=== PATIENT | female | born 1995 | race American Indian/Alaskan Native ===

== ENCOUNTER 2020-10-26 08:57 | Outpatient (CLI) | payer OTHER ==
[2020-10-26 09:30] VITALS: BP 113/74
== END 2020-10-26 10:33 | disposition home or self-care (01) ==
LOC: TRG 08:57 → APU 08:58 → TRG 10:33
PROVIDERS: ATTEND Obstetrics & Gynecology
DX: O26.893 Other specified pregnancy related conditions, third trimester (principal); R10.2 Pelvic and perineal pain; M54.5 Low back pain; Z3A.30 30 weeks gestation of pregnancy
CPT/HCPCS: 59025

== ENCOUNTER 2020-12-31 16:19 | Inpatient (IN) | payer OTHER ==
[2020-12-31] MEDS ORDERED: TERBUTALINE 1 MG/1 ML INJ SUB-Q PRN (16:51)
[2020-12-31] MEDS ORDERED: NalbUPHINE 10 MG/1 ML INJ IV PRN (16:51)
[2020-12-31] MEDS ORDERED: ONDANSETRON 4 MG/2 ML INJ IV PRN (16:51)
[2020-12-31] MEDS ORDERED: ACETAMINOPHEN 325 MG TAB PO PRN (16:51)
[2020-12-31] MEDS ORDERED: ePHEDrine SULFATE 50 MG/1 ML INJ IV PRN (16:51)
[2020-12-31] MEDS ORDERED: MINERAL OIL 30 ML ORAL LIQD PO PRN (16:51)
[2020-12-31] MEDS ORDERED: fentaNYL 100 MCG/2 ML INJ IV PRN (16:51)
[2020-12-31] MEDS ORDERED: LIDOCAINE (2%) 20 MG/1 ML VIAL 20 ML MDV INFILTRATI ONE (16:51)
[2020-12-31] MEDS ORDERED: OXYTOCIN DRIP 30 UNITS/500 ML BAG IV SCH (17:00)
[2020-12-31] MEDS: LACTATED RINGERS 1,000 ML IV SCH (18:21)
[2020-12-31 18:48] LABS: Hematocrit 37.3 % (30.3-42.9); Hemoglobin 12.5 gm/dl (10.1-14.3); Mean Corpuscular HGB Conc 34 % (30-34); Mean Corpuscular Volume 86 fl (79-97); Platelet Count 278 K/mm3 (140-440); Red Blood Count 4.35 M/mm3 (3.65-5.03); Red Cell Distribution Width 14.1 % (13.2-15.2)
[2020-12-31] MEDS ORDERED: DINOPROSTONE 10 MG VAG SUPP VG ONE (18:51)
[2020-12-31 18:56] LABS: Bacteria,Urine 1+ /HPF (Negative); Bilirubin,Urine NEG (Negative); Blood,Urine NEG (Negative); Color,Urine Yellow (Yellow); Mucus,Urine 1+ /HPF; Protein,Urine <15 mg/dL mg/dL (Negative); Urobilinogen,Urine < 2.0 mg/dL (<2.0)
--- NOTE | 2020-12-31 19:33 | History and Physical Report ---
History of Present Illness Date of examination: 12/31/20 Date of admission: 12/31/20 16:19 Chief complaint: Induction of labor for mildly elevated blood pressures in the office at 40-4/7-weeks History of present illness: 25-year-old -0-1-0 at 40-4/7 weeks by LL and LMP consistent with first trimester ultrasound, admitted for induction of labor. Patient with mildly elevated blood pressures in the office to 140/90's. On admission patient denies headache blurry vision or swelling but does admit to good movement. She denies loss of fluid and contractions and denies vaginal bleeding. care at [facility] [employer]: First visit at 10-6/7 weeks, last visit at 40-4/7 weeks. Total visits=11 OB problem list: Carriers SMA Bipolar disorder in remission GBS bacteria lab A positive Hemoglobin 13 point Rubella immune VDRL nonreactive Urine culture GBS positive HBsAg negative HIV negative GC chlamydia and Trichomoniasis negative MSAFP negative Past History Past Medical History: other (Bipolar) Past Surgical History: no surgical history Social history: no significant social history - Obstetrical History : 1 Medications and Allergies Allergies Allergy/AdvReac Type Severity Reaction Status Date / Time pcn Allergy Anaphylaxis Uncoded 10/26/20 09:32 Home Medications Medication Instructions Recorded Confirmed Last Taken Type No Known Home Medications [No 12/31/20 12/31/20 Unknown History Reported Home Medications] Active Meds: Active Medications Acetaminophen (Acetaminophen 325 Mg Tab) 650 mg PO Q4H PRN PRN Reason: Pain, Mild (1-3) Butorphanol Tartrate (Butorphanol 2 Mg/1 Ml Inj) 1 mg IV Q2H PRN PRN Reason: Pain, Moderate(4-6) LABOR PAIN Ephedrine Sulfate (Ephedrine Sulfate 50 Mg/1 Ml Inj) 10 mg IV Q2M PRN PRN Reason: Hypotension Fentanyl (Fentanyl 100 Mcg/2 Ml Inj) 100 mcg IV Q2H PRN PRN Reason: Pain,Severe (7-10) LABOR PAIN Oxytocin/Sodium Chloride (Pitocin/Ns 30 Unit/500ml) 30 units in 500 mls @ 2 mls/hr IV TITR TARA; Protocol Lactated Ringer's (Lactated Ringers) 1,000 mls @ 125 mls/hr IV DIRECT TARA Last Admin: 12/31/20 18:21 Dose: 125 mls/hr Documented by: Oxytocin/Sodium Chloride (Pitocin/Ns 30 Unit/500ml) 30 units in 500 mls @ 40 mls/hr IV TITR TARA; Protocol Clindamycin HCl (Cleocin 900 Mg/50 Ml) 900 mg in 50 mls @ 100 mls/hr IV Q8H TARA; Protocol Last Admin: 12/31/20 18:21 Dose: 100 mls/hr Documented by: Mineral Oil (Mineral Oil 30 Ml Oral Liqd) 30 ml PO QHS PRN PRN Reason: Constipation Nalbuphine HCl (Nalbuphine 10 Mg/1 Ml Inj) 10 mg IV Q2H PRN PRN Reason: Pain, Moderate (4-6) Ondansetron HCl (Ondansetron 4 Mg/2 Ml Inj) 4 mg IV Q8H PRN PRN Reason: Nausea And Vomiting Terbutaline Sulfate (Terbutaline 1 Mg/1 Ml Inj) 0.25 mg SUB-Q ONCE PRN PRN Reason: Hyperstimulation/Hypertonicity - Vital Signs Vital signs: Vital Signs Pulse BP 99 H 128/86 12/31/20 16:48 12/31/20 16:48 Temp Pulse Resp BP Pulse Ox 98.8 F 69 18 126/72 98 12/31/20 17:09 12/31/20 19:23 12/31/20 17:09 12/31/20 19:23 12/31/20 19:20 - Physical Exam Breasts: Positive: deferred Cardiovascular: Regular rate Lungs: Positive: Clear to auscultation Abdomen: Positive: normal appearance, soft, normal bowel sounds Extremities: Positive: normal Deep Tendon Reflex Grade: Normal +2 - Obstetrical FHR: category 1 Cervical Dilatation: 0.5 Cervical Effacement Percentage: 50 station: -3 Uterine Contraction Pattern: Absent Results Result Diagrams: 12/31/20 17:55 All other labs normal. Assessment and Plan IUP at 40 and 4 with mildly elevated blood pressures for induction of labor Plan Admission Serial blood pressure PIH labs Cervidil Continuous monitoring Blood pressures do not meet criteria on admission for preeclampsia, will monitor closely and if patient declares herself will start magnesium sulfate Maternal and wellbeing reassuring at bedside Zeenat Menjivar MD
[2020-12-31 19:48] LABS: Alanine Aminotransferase 10 units/L (7-56); Uric Acid 4.5 mg/dL (3.5-7.6)
[2020-12-31 20:25] LABS: Creatinine,Urine 112.4 mg/dL (0.1-20.0); Protein/Creatinine Ratio,Urine 0.15
[2021-01-01] MEDS ORDERED: DINOPROSTONE 10 MG VAG SUPP VG ONE (01:10)
[2021-01-01] MEDS: LACTATED RINGERS 1,000 ML IV SCH ×3 (02:54→22:20)
[2021-01-01] MEDS ORDERED: DINOPROSTONE 10 MG VAG SUPP VG NR (10:35)
--- NOTE | 2021-01-01 22:39 | Progress Note ---
Assessment and Plan HD 1 of induction. Pt receied cervidil last night that is to be removed in the am. Will continue with induction of labor. Will assess after removal of cervidil Subjective - Subjective Date of service: 01/01/21 Principal diagnosis: Induction of labor Patient reports: contractions, other (increased vaginal discharge) Objective - Vital Signs Vital Signs: Vital Signs - 12hr 01/01/21 01/01/21 01/01/21 10:39 10:44 12:20 Pulse Rate 58 L 68 79 Respiratory Rate Blood Pressure O2 Sat by Pulse 98 98 99 Oximetry 01/01/21 01/01/21 01/01/21 12:25 12:30 12:35 Pulse Rate 74 68 79 Respiratory Rate Blood Pressure O2 Sat by Pulse 99 99 99 Oximetry 01/01/21 01/01/21 01/01/21 12:40 12:45 12:50 Pulse Rate 71 66 70 Respiratory Rate Blood Pressure O2 Sat by Pulse 99 100 100 Oximetry 01/01/21 01/01/21 01/01/21 12:55 13:00 13:05 Pulse Rate 64 69 70 Respiratory Rate Blood Pressure O2 Sat by Pulse 100 100 100 Oximetry 01/01/21 01/01/21 01/01/21 13:10 13:15 13:20 Pulse Rate 71 66 67 Respiratory Rate Blood Pressure O2 Sat by Pulse 99 99 100 Oximetry 01/01/21 01/01/21 01/01/21 13:25 13:30 13:35 Pulse Rate 85 62 65 Respiratory Rate Blood Pressure O2 Sat by Pulse 99 98 98 Oximetry 01/01/21 01/01/21 01/01/21 13:40 13:45 13:50 Pulse Rate 61 63 60 Respiratory Rate Blood Pressure O2 Sat by Pulse 95 98 99 Oximetry 01/01/21 01/01/21 01/01/21 13:55 14:00 14:11 Pulse Rate 63 64 66 Respiratory Rate Blood Pressure O2 Sat by Pulse 98 97 100 Oximetry 01/01/21 01/01/21 01/01/21 14:16 14:21 14:26 Pulse Rate 58 L 57 L 60 Respiratory Rate Blood Pressure O2 Sat by Pulse 100 99 97 Oximetry 01/01/21 01/01/21 01/01/21 14:31 14:32 14:36 Pulse Rate 66 78 68 Respiratory Rate Blood Pressure O2 Sat by Pulse 95 92 99 Oximetry 01/01/21 01/01/21 01/01/21 14:41 14:46 14:51 Pulse Rate 62 68 68 Respiratory Rate Blood Pressure O2 Sat by Pulse 97 97 97 Oximetry 01/01/21 01/01/21 01/01/21 14:56 15:01 15:06 Pulse Rate 62 65 64 Respiratory Rate Blood Pressure O2 Sat by Pulse 96 96 96 Oximetry 01/01/21 01/01/21 01/01/21 15:11 15:16 15:21 Pulse Rate 64 65 67 Respiratory Rate Blood Pressure O2 Sat by Pulse 96 97 97 Oximetry 01/01/21 01/01/21 01/01/21 15:26 15:31 15:36 Pulse Rate 55 L 62 67 Respiratory Rate Blood Pressure O2 Sat by Pulse 99 100 100 Oximetry 01/01/21 01/01/21 01/01/21 15:41 15:46 15:58 Pulse Rate 60 64 90 Respiratory Rate Blood Pressure O2 Sat by Pulse 100 100 98 Oximetry 01/01/21 01/01/21 01/01/21 16:03 16:08 16:13 Pulse Rate 74 95 H 79 Respiratory Rate Blood Pressure O2 Sat by Pulse 100 100 100 Oximetry 01/01/21 01/01/21 01/01/21 16:18 16:23 16:26 Pulse Rate 80 76 78 Respiratory Rate Blood Pressure O2 Sat by Pulse 100 96 89 Oximetry 01/01/21 01/01/21 01/01/21 16:28 16:33 16:38 Pulse Rate 77 84 89 Respiratory Rate Blood Pressure O2 Sat by Pulse 97 99 100 Oximetry 01/01/21 01/01/21 01/01/21 16:43 16:48 16:53 Pulse Rate 95 H 88 84 Respiratory Rate Blood Pressure O2 Sat by Pulse 99 99 100 Oximetry 01/01/21 01/01/21 01/01/21 16:58 17:03 17:08 Pulse Rate 85 83 89 Respiratory Rate Blood Pressure O2 Sat by Pulse 100 99 100 Oximetry 01/01/21 01/01/21 01/01/21 17:13 17:18 17:39 Pulse Rate 84 92 H 72 Respiratory Rate Blood Pressure O2 Sat by Pulse 100 99 99 Oximetry 01/01/21 01/01/21 01/01/21 17:44 17:49 17:54 Pulse Rate 80 74 78 Respiratory Rate Blood Pressure O2 Sat by Pulse 98 99 99 Oximetry 01/01/21 01/01/21 01/01/21 17:59 18:04 18:09 Pulse Rate 74 87 74 Respiratory Rate Blood Pressure O2 Sat by Pulse 99 99 99 Oximetry 01/01/21 01/01/21 01/01/21 18:14 18:19 18:29 Pulse Rate 92 H 75 94 H Respiratory Rate Blood Pressure O2 Sat by Pulse 99 98 92 Oximetry 01/01/21 01/01/21 01/01/21 18:34 18:39 18:44 Pulse Rate 81 84 72 Respiratory Rate Blood Pressure O2 Sat by Pulse 100 100 100 Oximetry 01/01/21 01/01/21 01/01/21 18:49 18:54 18:59 Pulse Rate 87 77 76 Respiratory Rate Blood Pressure O2 Sat by Pulse 99 99 100 Oximetry 01/01/21 01/01/21 01/01/21 19:04 19:09 19:14 Pulse Rate 77 83 82 Respiratory Rate Blood Pressure O2 Sat by Pulse 99 100 99 Oximetry 01/01/21 01/01/21 01/01/21 19:19 19:20 19:24 Pulse Rate 86 75 82 Respiratory Rate Blood Pressure 133/78 O2 Sat by Pulse 98 100 Oximetry 01/01/21 01/01/21 01/01/21 19:29 19:34 19:46 Pulse Rate 76 79 Respiratory Rate Blood Pressure O2 Sat by Pulse 100 100 100 Oximetry 01/01/21 01/01/21 01/01/21 19:51 19:56 19:58 Pulse Rate 72 67 86 Respiratory Rate Blood Pressure O2 Sat by Pulse 100 99 94 Oximetry 01/01/21 01/01/21 01/01/21 20:01 20:06 20:11 Pulse Rate 66 73 73 Respiratory Rate Blood Pressure O2 Sat by Pulse 100 100 99 Oximetry 01/01/21 01/01/21 01/01/21 20:16 20:21 20:26 Pulse Rate 69 68 69 Respiratory Rate Blood Pressure O2 Sat by Pulse 100 99 100 Oximetry 01/01/21 01/01/21 01/01/21 20:31 20:36 20:41 Pulse Rate 69 77 82 Respiratory Rate Blood Pressure O2 Sat by Pulse 100 100 100 Oximetry 01/01/21 01/01/21 01/01/21 20:46 20:51 20:56 Pulse Rate 72 73 74 Respiratory Rate Blood Pressure O2 Sat by Pulse 99 100 100 Oximetry 01/01/21 01/01/21 01/01/21 21:07 21:09 21:12 Pulse Rate 80 76 70 Respiratory Rate Blood Pressure O2 Sat by Pulse 99 82 L 100 Oximetry 01/01/21 01/01/21 01/01/21 21:17 21:22 21:27 Pulse Rate 73 84 74 Respiratory 18 Rate Blood Pressure O2 Sat by Pulse 100 98 99 Oximetry 01/01/21 01/01/21 01/01/21 21:32 21:37 21:42 Pulse Rate 78 70 80 Respiratory Rate Blood Pressure O2 Sat by Pulse 98 98 100 Oximetry 01/01/21 01/01/21 01/01/21 21:47 21:52 21:57 Pulse Rate 72 64 67 Respiratory Rate Blood Pressure O2 Sat by Pulse 99 96 98 Oximetry 01/01/21 01/01/21 01/01/21 22:02 22:07 22:12 Pulse Rate 77 63 91 H Respiratory Rate Blood Pressure O2 Sat by Pulse 99 100 100 Oximetry 01/01/21 01/01/21 01/01/21 22:17 22:22 22:27 Pulse Rate 66 61 70 Respiratory Rate Blood Pressure O2 Sat by Pulse 98 98 99 Oximetry 01/01/21 22:32 Pulse Rate 78 Respiratory Rate Blood Pressure O2 Sat by Pulse 98 Oximetry - Exam Lungs: Clear to auscultation, Normal air movement Abdomen: Present: normal appearance, soft, normal bowel sounds Uterus: Present: normal, firm Cervical Dilatation: 0 Cervical Effacement Percentage: 50 Uterine Tone Measurement Phase: Contraction Uterine Contraction Intensity: Moderate - Labs Labs: Abnormal Labs 12/31/20 12/31/20 17:55 18:06 Lactate Dehydrogenase 197 H Urine Creatinine 112.4 H Urine Total Protein 17 H Laboratory Results - last 24 hr 01/01/21 Unknown Coronavirus (PCR) Negative
[2021-01-02] MEDS: BUTORPHANOL 2 MG/1 ML INJ IV PRN ×2 (05:43→09:33)
[2021-01-02] MEDS: LACTATED RINGERS 1,000 ML IV SCH ×3 (08:00→18:10)
[2021-01-02] MEDS: OXYTOCIN DRIP 30 UNITS/500 ML BAG IV SCH ×13 (08:03→18:23)
--- NOTE | 2021-01-02 08:46 | Progress Note ---
Assessment and Plan A: 26 yo at 40w6d EGA Gestational hypertension Membranes intact GBS positive P: Continue induction of labor- Pitocin titration 2x2 Antibiotic prophylaxis in active labor and/or ruptured membranes Subjective - Subjective Date of service: 01/02/21 Principal diagnosis: Gestational HTN, Induction of labor Interval history: HD2.5 of IOL for gestational hypertension. S/p Cervidil x2 and low dose Pitocin. Denies OCONNOR, scotomata, swelling. Patient reports: movement normal, contractions, other, no new complaints, no loss of fluid, no vaginal bleeding Objective - Vital Signs Vital Signs: Vital Signs - 12hr 01/01/21 01/01/21 01/01/21 20:46 20:51 20:56 Temperature Pulse Rate 72 73 74 Respiratory Rate Blood Pressure Blood Pressure [Right] O2 Sat by Pulse 99 100 100 Oximetry 01/01/21 01/01/21 01/01/21 21:07 21:09 21:12 Temperature Pulse Rate 80 76 70 Respiratory Rate Blood Pressure Blood Pressure [Right] O2 Sat by Pulse 99 82 L 100 Oximetry 01/01/21 01/01/21 01/01/21 21:17 21:22 21:27 Temperature Pulse Rate 73 84 74 Respiratory 18 Rate Blood Pressure Blood Pressure [Right] O2 Sat by Pulse 100 98 99 Oximetry 01/01/21 01/01/21 01/01/21 21:32 21:37 21:42 Temperature Pulse Rate 78 70 80 Respiratory Rate Blood Pressure Blood Pressure [Right] O2 Sat by Pulse 98 98 100 Oximetry 01/01/21 01/01/21 01/01/21 21:47 21:52 21:57 Temperature Pulse Rate 72 64 67 Respiratory Rate Blood Pressure Blood Pressure [Right] O2 Sat by Pulse 99 96 98 Oximetry 01/01/21 01/01/21 01/01/21 22:02 22:07 22:12 Temperature Pulse Rate 77 63 91 H Respiratory Rate Blood Pressure Blood Pressure [Right] O2 Sat by Pulse 99 100 100 Oximetry 01/01/21 01/01/21 01/01/21 22:17 22:22 22:27 Temperature Pulse Rate 66 61 70 Respiratory 18 Rate Blood Pressure Blood Pressure [Right] O2 Sat by Pulse 98 98 99 Oximetry 01/01/21 01/01/21 01/01/21 22:32 22:37 22:42 Temperature Pulse Rate 78 74 70 Respiratory Rate Blood Pressure Blood Pressure [Right] O2 Sat by Pulse 98 97 99 Oximetry 01/01/21 01/01/21 01/01/21 22:47 22:52 22:57 Temperature Pulse Rate 74 91 H 89 Respiratory Rate Blood Pressure Blood Pressure [Right] O2 Sat by Pulse 98 100 100 Oximetry 01/01/21 01/01/21 01/01/21 23:02 23:07 23:12 Temperature Pulse Rate 91 H 89 87 Respiratory Rate Blood Pressure Blood Pressure [Right] O2 Sat by Pulse 100 100 99 Oximetry 01/01/21 01/01/21 01/01/21 23:17 23:22 23:27 Temperature Pulse Rate 89 91 H 83 Respiratory Rate Blood Pressure Blood Pressure [Right] O2 Sat by Pulse 100 98 98 Oximetry 01/01/21 01/01/21 01/01/21 23:32 23:37 23:42 Temperature Pulse Rate 86 89 90 Respiratory Rate Blood Pressure Blood Pressure [Right] O2 Sat by Pulse 100 100 99 Oximetry 01/01/21 01/01/21 01/01/21 23:47 23:52 23:57 Temperature Pulse Rate 79 77 85 Respiratory Rate Blood Pressure Blood Pressure [Right] O2 Sat by Pulse 100 99 99 Oximetry 01/02/21 01/02/21 01/02/21 02:01 02:03 02:06 Temperature Pulse Rate 72 66 63 Respiratory Rate Blood Pressure 117/57 Blood Pressure [Right] O2 Sat by Pulse 99 98 Oximetry 01/02/21 01/02/21 01/02/21 02:11 02:16 02:21 Temperature Pulse Rate 58 L 57 L 56 L Respiratory Rate Blood Pressure Blood Pressure [Right] O2 Sat by Pulse 99 98 98 Oximetry 01/02/21 01/02/21 01/02/21 02:26 02:31 02:36 Temperature Pulse Rate 64 60 58 L Respiratory Rate Blood Pressure Blood Pressure [Right] O2 Sat by Pulse 99 98 97 Oximetry 01/02/21 01/02/21 01/02/21 02:41 02:46 02:51 Temperature Pulse Rate 63 60 59 L Respiratory Rate Blood Pressure Blood Pressure [Right] O2 Sat by Pulse 97 97 97 Oximetry 01/02/21 01/02/21 01/02/21 02:56 03:01 03:02 Temperature Pulse Rate 58 L 62 66 Respiratory Rate Blood Pressure Blood Pressure [Right] O2 Sat by Pulse 95 96 93 Oximetry 01/02/21 01/02/21 01/02/21 03:06 03:20 03:25 Temperature Pulse Rate 61 62 62 Respiratory Rate Blood Pressure Blood Pressure [Right] O2 Sat by Pulse 97 100 99 Oximetry 01/02/21 01/02/21 01/02/21 03:30 03:35 03:40 Temperature Pulse Rate 66 61 55 L Respiratory Rate Blood Pressure Blood Pressure [Right] O2 Sat by Pulse 100 97 100 Oximetry 01/02/21 01/02/21 01/02/21 03:45 03:50 03:55 Temperature Pulse Rate 53 L 55 L 60 Respiratory Rate Blood Pressure Blood Pressure [Right] O2 Sat by Pulse 100 99 99 Oximetry 01/02/21 01/02/21 01/02/21 04:00 04:05 04:10 Temperature Pulse Rate 61 61 61 Respiratory Rate Blood Pressure Blood Pressure [Right] O2 Sat by Pulse 98 99 99 Oximetry 01/02/21 01/02/21 01/02/21 04:15 04:20 04:25 Temperature Pulse Rate 69 60 54 L Respiratory Rate Blood Pressure Blood Pressure [Right] O2 Sat by Pulse 99 98 99 Oximetry 01/02/21 01/02/21 01/02/21 04:30 04:35 04:40 Temperature Pulse Rate 56 L 57 L 58 L Respiratory Rate Blood Pressure Blood Pressure [Right] O2 Sat by Pulse 99 99 98 Oximetry 01/02/21 01/02/21 01/02/21 04:54 04:59 05:04 Temperature Pulse Rate 84 70 65 Respiratory Rate Blood Pressure Blood Pressure [Right] O2 Sat by Pulse 99 99 100 Oximetry 01/02/21 01/02/21 01/02/21 05:09 05:14 05:19 Temperature Pulse Rate 64 67 67 Respiratory Rate Blood Pressure Blood Pressure [Right] O2 Sat by Pulse 99 100 100 Oximetry 01/02/21 01/02/21 01/02/21 05:24 05:29 05:34 Temperature Pulse Rate 68 63 59 L Respiratory Rate Blood Pressure Blood Pressure [Right] O2 Sat by Pulse 100 99 98 Oximetry 01/02/21 01/02/21 01/02/21 05:39 05:43 05:44 Temperature Pulse Rate 61 67 Respiratory 18 Rate Blood Pressure Blood Pressure [Right] O2 Sat by Pulse 98 98 Oximetry 01/02/21 01/02/21 01/02/21 05:49 06:00 06:05 Temperature Pulse Rate 70 68 67 Respiratory Rate Blood Pressure Blood Pressure [Right] O2 Sat by Pulse 98 100 100 Oximetry 01/02/21 01/02/21 01/02/21 06:10 06:15 06:20 Temperature Pulse Rate 56 L 58 L 68 Respiratory Rate Blood Pressure Blood Pressure [Right] O2 Sat by Pulse 98 97 99 Oximetry 01/02/21 01/02/21 01/02/21 06:25 06:30 06:35 Temperature Pulse Rate 61 78 64 Respiratory Rate Blood Pressure Blood Pressure [Right] O2 Sat by Pulse 99 99 100 Oximetry 01/02/21 01/02/21 01/02/21 06:40 06:45 06:50 Temperature Pulse Rate 66 77 61 Respiratory Rate Blood Pressure Blood Pressure [Right] O2 Sat by Pulse 99 99 98 Oximetry 01/02/21 01/02/21 01/02/21 06:55 07:00 07:05 Temperature Pulse Rate 72 66 71 Respiratory Rate Blood Pressure Blood Pressure [Right] O2 Sat by Pulse 100 100 99 Oximetry 01/02/21 01/02/21 01/02/21 07:17 07:22 07:27 Temperature Pulse Rate 82 72 71 Respiratory Rate Blood Pressure Blood Pressure [Right] O2 Sat by Pulse 84 98 100 Oximetry 01/02/21 01/02/21 01/02/21 07:32 07:37 07:42 Temperature Pulse Rate 73 64 69 Respiratory Rate Blood Pressure Blood Pressure [Right] O2 Sat by Pulse 100 100 100 Oximetry 01/02/21 01/02/21 01/02/21 07:47 07:50 07:52 Temperature 98.4 F Pulse Rate 68 70 70 Respiratory 16 Rate Blood Pressure 134/83 Blood Pressure 134/83 [Right] O2 Sat by Pulse 100 100 Oximetry 01/02/21 01/02/21 01/02/21 07:59 08:04 08:09 Temperature Pulse Rate 91 H 75 76 Respiratory Rate Blood Pressure Blood Pressure [Right] O2 Sat by Pulse 83 L 99 100 Oximetry 01/02/21 01/02/21 01/02/21 08:14 08:19 08:24 Temperature Pulse Rate 71 72 76 Respiratory Rate Blood Pressure Blood Pressure [Right] O2 Sat by Pulse 100 100 100 Oximetry 01/02/21 01/02/2101/02/21 08:29 08:30 08:34 Temperature Pulse Rate 71 74 73 Respiratory Rate Blood Pressure Blood Pressure [Right] O2 Sat by Pulse 99 93 99 Oximetry 01/02/21 08:39 Temperature Pulse Rate 71 Respiratory Rate Blood Pressure Blood Pressure [Right] O2 Sat by Pulse 100 Oximetry - Exam Abdomen: Present: soft. Absent: distention Uterus: Present: firm (gravid) FHR: category 1 Uterine Contraction Monitor Mode: External Cervical Dilatation: 3 Cervical Effacement Percentage: 80 station: -2 Uterine Contraction Pattern: Irregular Uterine Tone Measurement Phase: Contraction Uterine Contraction Intensity: Moderate - Labs Labs: Abnormal Labs 12/31/20 12/31/20 17:55 18:06 Lactate Dehydrogenase 197 H Urine Creatinine 112.4 H Urine Total Protein 17 H Laboratory Results - last 24 hr 01/01/21 Unknown Coronavirus (PCR) Negative
[2021-01-02] MEDS ORDERED: LACTATED RINGERS 250 ML IV SOLN IV ONE (12:22)
[2021-01-02] MEDS ORDERED: NALOXONE 2 MG/2 ML INJ IV PRN (12:22)
[2021-01-02] MEDS ORDERED: NalbUPHINE 10 MG/1 ML INJ IV PRN (12:22)
[2021-01-02] MEDS ORDERED: diphenhydrAMINE 50 MG/ML VIAL IV PRN (12:22)
--- NOTE | 2021-01-02 12:52 | Progress Note ---
Labor Epidural - Labor Epidural Start Time: 12:36 Stop Time: 12:50 Performed by:: ROSALINDA JOSHI Procedure: Patient is requesting epidural for labor and pain. H&P, labs were reviewed. Patient IDed, H&P reviewed, all questions and concerns were answered, and consent was signed. Timeout was performed at bedside. Patient in sitting position. Sterile prep and drape was performed. 3ml of 1% lidocaine skin wheal at L[3]- L [4]. 18-gauge Tuohy epidural needle was advanced to loss of resistance with air technique 8cm. Negative CSF negative blood. Epidural catheter advanced to [13] centimeters. [negative] Aspiration [negative] test dose. Sterile dressing applied. Patient tolerated procedure.
--- NOTE | 2021-01-02 12:52 | Anesthesia Consultation ---
Anesthesia Consult and Med Hx Date of service: 01/02/21 - Airway Anesthetic Teeth Evaluation: Good ROM Head & Neck: Adequate Mental/Hyoid Distance: Adequate Mallampati Class: Class II Intubation Access Assessment: Probably Good - Pulmonary Exam CTA: Yes - Cardiac Exam Cardiac Exam: RRR - Pre-Operative Health Status ASA Pre-Surgery Classification: ASA2 Proposed Anesthetic Plan: Epidural - Pulmonary Hx Smoking: No Hx Asthma: No COPD: No Hx Pneumonia: No Hx Sleep Apnea: No - Cardiovascular System Hx Hypertension: No Hx Heart Attack/AMI: No Hx Angina: No - Central Nervous System Hx Seizures: No Hx Psychiatric Problems: No - Gastrointestinal Hx Gastroesophageal Reflux Disease: No - Endocrine Hx Renal Disease: No Hx End Stage Renal Disease: No Hx Insulin Dependent Diabetes: No Hx Non-Insulin Dependent Diabetes: No Hx Hypothyroidism: No Hx Hyperthyroidism: No - Hematic Hx Anemia: No Hx Sickle Cell Disease: No - Other Systems Hx Alcohol Use: No
--- NOTE | 2021-01-02 13:22 | Event Note ---
Date: 01/02/21 Pt resting comfortably immediately after epidural. Late decelerations noted, resolved with position change, likely due to recent epidural placement. SVE /-2, AROM meconium-stained amniotic fluid at 1300. Continue Pitocin 2x2.
[2021-01-02] MEDS: fentaNYL-BUPIV 2 MCG/ML-0.125% 200 MCG/100 ML BAG EPIDURAL SCH ×2 (13:26→20:13)
--- NOTE | 2021-01-03 00:28 | Event Note ---
Date: 01/03/21 Patient was seen and examined. Comfortable s/p epidural bolus. Plan: continue IOL. Cervix /-2 SROM 1300 -continue to monitor progress -no s/s of infection -will add internals next check
[2021-01-03] MEDS ORDERED: FAMOTIDINE 20 MG/2 ML INJ IV ONE (01:04)
[2021-01-03] MEDS ORDERED: BICITRA ORAL LIQD 30ML PO ONE (01:04)
[2021-01-03] MEDS ORDERED: METOCLOPRAMIDE 10 MG/2 ML INJ IV ONE (01:04)
[2021-01-03] MEDS ORDERED: dexAMETHasone 20 MG/5 ML VIAL ONE (01:17)
[2021-01-03] MEDS ORDERED: BUPIVACAINE/PF (0.5%) 5 MG/1 ML 30 ML VIAL INFILTRATI ONE (01:17)
[2021-01-03] MEDS ORDERED: LIDOCAINE 2%/EPINEPHRINE 1:200,000 VIAL (20 ML) INFILTRATI ONE (01:17)
[2021-01-03] MEDS ORDERED: KETOROLAC 30 MG/1 ML INJ ONE (01:17)
[2021-01-03] MEDS ORDERED: ONDANSETRON 4 MG/2 ML INJ ONE (01:17)
--- NOTE | 2021-01-03 01:32 | Event Note ---
Date: 01/03/21 Course reviewed Patient now 12h post ROM. R/B/A/I for delivery reviewed, all questions answered, patient expressed understanding and elects to proceed. call center associate to OR.
[2021-01-03] MEDS ORDERED: HYDROmorphone 1 MG/1 ML INJ IV PRN (01:33)
[2021-01-03] MEDS ORDERED: ONDANSETRON 4 MG/2 ML INJ IV PRN ×2 (01:33→03:40)
[2021-01-03] MEDS ORDERED: PROMETHAZINE 25 MG RECT SUPP PR PRN ×2 (01:33→03:40)
[2021-01-03] MEDS ORDERED: NALOXONE 0.4 MG/1 ML INJ IV PRN ×2 (01:33→03:40)
[2021-01-03] MEDS ORDERED: PROMETHAZINE 25 MG TAB PO PRN (01:33)
[2021-01-03] MEDS ORDERED: SODIUM CHLORIDE 0.9% IRR 1,500 ML BOTTLE IR ONE (01:48)
[2021-01-03] MEDS ORDERED: ceFAZolin/Water 2 GM/20 ML 2 GM/20 ML SYRINGE IV NR (02:00)
[2021-01-03] MEDS ORDERED: LACTATED RINGERS 1,000 ML ONE (02:01)
[2021-01-03] MEDS ORDERED: AZITHROMYCIN/NS 500 MG/250 ML 500 MG/250 ML BAG IV ONE (02:04)
[2021-01-03] MEDS ORDERED: WATER FOR IRRIG STERILE 1,500 ML BOTTLE IR ONE (02:09)
[2021-01-03] MEDS ORDERED: ceFAZolin 1 GM VIAL ONE (02:11)
[2021-01-03] MEDS ORDERED: METHYLERGONOVINE MALEATE 0.2 MG/ML VIAL IM ONE (02:33)
[2021-01-03] MEDS ORDERED: OXYTOCIN 10 UNIT/1 ML INJ ONE (03:32)
[2021-01-03] MEDS ORDERED: LANOLIN/ZINC/DIMETHICONE (LANSINOH) 7 GM TP PRN (03:40)
[2021-01-03] MEDS ORDERED: WITCH HAZEL/ GLYCERIN PAD TP PRN (03:40)
[2021-01-03] MEDS ORDERED: oxyCODONE /ACETAMINOPHEN 5-325MG TAB PO PRN (03:40)
[2021-01-03] MEDS ORDERED: IBUPROFEN 600 MG TAB PO PRN (03:40)
[2021-01-03] MEDS ORDERED: SIMETHICONE 80 MG CHEW TAB PO PRN (03:40)
--- NOTE | 2021-01-03 03:46 | Procedure Note ---
OB Delivery Note - Delivery Date of Delivery: 01/03/21 Surgeon: YESENIA GARY Estimated blood loss: other (600) - Section Preop diagnosis: arrest of dilation Postop diagnosis: same section procedure: section Disposition: PACU Complications: uterine atony - A at 1 minute: 8 at 5 minutes: 9 Gender: Male
--- NOTE | 2021-01-03 03:58 | Operative Report ---
Operative Report Operative Report: Preoperative diagnosis: Intrauterine at 40-6/7 weeks 2. Failed Induction of Labor 3. Arrest of Dilation 4. Gestational hypertension Postoperative diagnosis: Same Procedure: Primary low transverse section Surgeon: Dr. Jeffrey Beckford EBL: 600cc Urine output: 250 mL IV fluids: 1400 mL Findings: Viable male in cephalic-OP presentation, weight 7 lbs. 8 oz. 3405g Apgars 8 and 9. Otherwise normal pelvic anatomy Specimens: Placenta Complications: None Procedure: The patient was admitted to the OR with IV running and in place. She was prepped and draped in the normal sterile fashion in the supine position with a leftward tilt. An Allis test was used to confirm adequate anesthesia. Once confirmed, the incision was made with the scalpel and carried to the underlying fascia using the scalpel and the Bovie. The fascia was incised in the midline and incision was extended bilaterally using the curved Jc scissors. The fascia was then dissected from the underlying rectus muscles in a series of sharp and blunt dissection using the Jc scissors. Muscles were in the in the midline and the peritoneum was entered into bluntly using the surgeon's fingers. Dm retractor was inserted. A bladder blade was then placed into the incision to protect the bladder. Following this the bladder flap was created. Hysterotomy incision was then made in the scalpel. Upon uterine entry, the amniotic sac was ruptured with terminal meconium. The was then delivered. His mouth and nose were suctioned on the field. The cord was clamped and cut and she was handed to the waiting NICU personnel. The uterus cleared of all clots and debris. Extension of the incision was noted at the left lateral margin. The uterus was exteriorized to assist with adequate visualization. Pitocin and Hemabate was given to assist with uterine atony, adequate firmness confirmed. The hysterotomy incision was then closed in a running locked fashion using 0 monocryl, this was reapproximated with a second layer using the same suture via imbrication. Surgicel was placed over the incision. The bladder flap was reapproximated using a 4-0 vicryl. Attention was turned to the left lateral margin-bleeding was noted. This was repaired with a figure of eight stitch using 0-monocryl. Scant oozing noted from the left fallopian tube, hemablast was placed, adequate hemostasis noted. Adequate hemostasis was confirmed upon reinspection of the uterine incision. The uterus was returned to the abdomen. The dm retractor was removed. The peritoneum was reapproximated using a 2-0 Vicryl. At this point the muscles were reapproximated in the midline using individual sutures of 2-0 Vicryl. Following this the fascia was closed in a running fashion using 0 Vicryl. The subcutaneous layer was reapproximated in 2 layers using a 2-0 followed by a 3-0 vicryl. Skin was closed in a running fashion using 4-0 Monocryl. The sponge lap needle and instrument counts were correct 2. The patient tolerated the procedure well. She was taken to recovery in stable condition.
[2021-01-03] MEDS ORDERED: OXYTOCIN DRIP 30 UNITS/500 ML BAG IV SCH (04:00)
--- NOTE | 2021-01-03 04:00 | Progress Note ---
Regional Anesthesia Block - Regional Anesthesia Block Start Time: 03:54 Stop Time: 03:59 Performed By:: ROSALINDA JOSHI (Chana MCCOY) Procedure: Patient consented for TAP block for post surgical pain management. Patient identified, monitors placed, and time out performed. Mid axillary TAP identified bilaterally via ultrasound. Skin prepped bilaterally with [chlorhexidine] and [20g stimuplex] needle advanced to the TAP. 35ml [Marcaine 0.215% with 25mcg Precedex and Decadron 5mg] injected under ultrasound guidance on the [left] side. 35ml [Marcaine 0.215% with 25mcg Precedex and Decadron 5mg] injected under ultrasound guidance on the [right] side.
[2021-01-03] MEDS: HYDROmorphone 1 MG/1 ML INJ IV PRN ×4 (04:40→17:00)
[2021-01-03] MEDS ORDERED: MAGNESIUM SULFATE 4 GM/100 ML BAG IV ONE (09:48)
[2021-01-03] MEDS ORDERED: CALCIUM GLUCONATE 1000 MG/10 ML INJ IV ONE (09:48)
[2021-01-03] MEDS ORDERED: CALCIUM GLUCONATE 1000 MG/10 ML INJ IV PRN (10:00)
--- NOTE | 2021-01-03 10:20 | Event Note ---
Date: 01/03/21 Pt has persistent severe range BP. She is resting comfortably and denies headache, scotomata, or swelling. New diagnosis of preeclampsia with severe features. Will transfer to L&D for magnesium sulfate infusion x24 hours. Rescue antihypertensives as needed.
[2021-01-03] MEDS: MAGNESIUM SULFATE 40GM/1000ML 40 GM/1,000 ML BAG IV SCH (12:56)
--- NOTE | 2021-01-03 15:36 | Post Anesthesia Evaluation ---
- Post Anesthesia Evaluation Patient Participated: Yes Airway Patent: Yes Stable Respiratory Function: Yes Nausea/Vomiting: No Temp > 96.8F: Yes Pain Manageable: Yes Adequeate Hydration: Yes Anesthesia Complications: No Block Receding Appropriately: Yes Patient on Ventilator: No
[2021-01-03 16:32] LABS: Hematocrit 36.4 % (30.3-42.9); Hemoglobin 12.3 gm/dl (10.1-14.3)
[2021-01-03] MEDS: LACTATED RINGERS 1,000 ML IV SCH (17:21)
[2021-01-03] MEDS: KETOROLAC 30 MG/1 ML INJ IV SCH (21:34)
[2021-01-04] MEDS: HYDROmorphone 1 MG/1 ML INJ IV PRN ×2 (00:32→12:22)
[2021-01-04] MEDS: LACTATED RINGERS 1,000 ML IV SCH (07:40)
[2021-01-04] MEDS: MAGNESIUM SULFATE 40GM/1000ML 40 GM/1,000 ML BAG IV SCH (07:40)
[2021-01-04] MEDS: KETOROLAC 30 MG/1 ML INJ IV SCH ×3 (10:24→21:40)
--- NOTE | 2021-01-04 16:34 | Progress Note ---
Assessment and Plan A: POD#1 s/p primary section Preeclampsia with severe features s/p magnesium sulfate x 24 hours for seizure prophylaxis; on Labetalol 100 mg PO BID Obesity P: Continue routine postop care Subjective - Subjective Date of service: 01/05/21 Principal diagnosis: s/p primary , Preeclampsia with severe features Interval history: Pt without complaints presently. + flatus. She completed 24 hours of magnesium sulfate for seizure prophyalxis. She is receiving Labetalol 100 mg BID. Patient reports: appetite normal, voiding normally, pain well controlled, flatus, ambulating normally, no bowel movement [place]: doing well Objective - Vital Signs Latest vital signs: Vital Signs Temp Pulse Resp BP BP Pulse Ox 01/04/21 15:42 98.1 F 76 16 122/68 100 01/04/21 11:53 90 97 01/04/21 11:48 89 96 01/04/21 11:43 85 97 01/04/21 11:38 89 97 01/04/21 11:33 87 97 01/04/21 11:29 90 118/61 01/04/21 11:28 89 97 01/04/21 11:23 94 H 97 01/04/21 11:18 92 H 97 01/04/21 11:13 87 97 01/04/21 11:08 91 H 97 01/04/21 11:03 90 98 01/04/21 10:59 90 127/59 01/04/21 10:58 92 H 97 01/04/21 10:53 94 H 96 01/04/21 10:48 95 H 96 01/04/21 10:43 86 97 01/04/21 10:38 93 H 97 01/04/21 10:33 89 98 01/04/21 10:29 85 139/78 01/04/21 10:28 86 99 01/04/21 10:24 92 H 140/80 01/04/21 10:23 94 H 97 01/04/21 10:18 85 97 01/04/21 10:13 88 96 01/04/21 10:08 91 H 96 01/04/21 10:03 86 97 01/04/21 09:59 86 140/80 01/04/21 09:58 87 97 01/04/21 09:53 83 95 01/04/21 09:48 84 90 01/04/21 09:43 88 96 01/04/21 09:38 86 96 01/04/21 09:33 89 97 01/04/21 09:29 96 H 135/79 01/04/21 09:28 85 98 01/04/21 09:23 84 96 01/04/21 09:18 86 97 01/04/21 09:13 84 97 01/04/21 09:08 84 96 01/04/21 09:03 81 97 01/04/21 08:59 82 138/79 01/04/21 08:58 82 97 01/04/21 08:53 83 97 01/04/21 08:48 86 98 01/04/21 08:43 83 98 01/04/21 08:37 90 97 01/04/21 08:33 90 95 01/04/21 08:28 83 134/78 95 01/04/21 08:25 94 H 91 01/04/21 08:23 94 H 87 01/04/21 08:18 90 87 01/04/21 08:13 94 H 92 01/04/21 08:08 77 91 01/04/21 08:07 87 87 01/04/21 08:03 86 96 01/04/21 07:59 86 134/75 01/04/21 07:57 84 96 01/04/21 07:53 87 98 01/04/21 07:47 85 95 01/04/21 07:43 84 98 01/04/21 07:40 98.2 F 98 H 16 131/77 98 01/04/21 07:38 86 97 01/04/21 07:34 93 H 86 01/04/21 07:33 85 96 01/04/21 07:29 85 131/77 01/04/21 07:28 86 97 01/04/21 07:23 88 96 01/04/21 07:18 86 99 01/04/21 07:13 102 H 98 01/04/21 07:08 98 H 97 01/04/21 07:03 72 98 01/04/21 06:59 86 125/68 01/04/21 06:58 82 98 01/04/21 06:52 103 H 98 01/04/21 06:48 90 98 01/04/21 06:43 85 97 01/04/21 06:38 89 97 01/04/21 06:33 87 98 01/04/21 06:29 92 H 127/76 01/04/21 06:28 86 96 01/04/21 06:23 91 H 97 01/04/21 06:17 93 H 98 01/04/21 06:13 92 H 94 01/04/21 06:08 88 97 01/04/21 06:03 90 97 01/04/21 05:59 86 138/73 01/04/21 05:58 88 99 01/04/21 05:53 95 H 96 01/04/21 05:48 97 H 96 01/04/21 05:43 90 96 01/04/21 05:38 87 96 01/04/21 05:33 88 96 01/04/21 05:29 93 H 129/76 01/04/21 05:28 89 96 01/04/21 05:23 88 96 01/04/21 05:18 90 96 01/04/21 05:13 91 H 95 01/04/21 05:08 92 H 95 01/04/21 05:03 94 H 97 01/04/21 04:59 87 134/86 01/04/21 04:58 94 H 97 01/04/21 04:55 96 H 92 01/04/21 04:53 94 H 95 01/04/21 04:48 91 H 88 01/04/21 04:43 98 H 98 01/04/21 04:38 99 H 91 01/04/21 04:33 98 H 95 01/04/21 04:32 101 H 82 L 01/04/21 04:29 94 H 135/70 01/04/21 04:28 95 H 97 01/04/21 04:25 95 H 81 L 01/04/21 04:23 94 H 95 01/04/21 04:18 95 H 95 01/04/21 04:13 94 H 96 01/04/21 04:08 94 H 94 01/04/21 04:03 93 H 95 01/04/21 03:59 91 H 127/66 01/04/21 03:58 92 H 95 01/04/21 03:53 93 H 94 01/04/21 03:48 89 96 01/04/21 03:43 95 H 96 01/04/21 03:38 92 H 95 01/04/21 03:33 91 H 96 01/04/21 03:29 86 129/76 01/04/21 03:28 91 H 98 01/04/21 03:23 92 H 99 01/04/21 03:18 92 H 98 01/04/21 03:13 89 99 01/04/21 03:08 88 98 01/04/21 03:03 92 H 97 01/04/21 02:59 89 130/66 01/04/21 02:58 95 H 97 01/04/21 02:53 92 H 98 01/04/21 02:48 96 H 98 01/04/21 02:43 94 H 98 01/04/21 02:38 94 H 97 01/04/21 02:33 91 H 98 01/04/21 02:29 90 132/78 01/04/21 02:28 92 H 98 01/04/21 02:23 89 99 01/04/21 02:18 94 H 98 01/04/21 02:13 94 H 98 01/04/21 02:08 99 H 98 01/04/21 02:03 95 H 99 01/04/21 01:59 92 H 135/79 01/04/21 01:58 94 H 97 01/04/21 01:53 89 98 01/04/21 01:48 90 97 01/04/21 01:43 91 H 96 01/04/21 01:38 90 98 01/04/21 01:33 90 99 01/04/21 01:29 88 133/75 01/04/21 01:28 96 H 97 01/04/21 01:22 93 H 97 01/04/21 01:18 93 H 99 01/04/21 01:13 91 H 98 01/04/21 01:08 91 H 98 01/04/21 01:03 87 98 01/04/21 00:59 87 131/85 01/04/21 00:58 95 H 98 01/04/21 00:53 91 H 98 01/04/21 00:48 96 H 98 01/04/21 00:43 89 98 01/04/21 00:38 85 98 01/04/21 00:33 87 99 01/04/21 00:32 16 01/04/21 00:29 89 132/70 01/04/21 00:28 92 H 97 03/26/21 00:23 89 99 01/04/21 00:18 94 H 97 01/04/21 00:13 85 96 01/04/21 00:08 84 96 01/04/21 00:05 99 H 92 01/04/21 00:03 84 95 01/03/21 23:59 85 113/56 01/03/21 23:58 85 95 01/03/21 23:53 84 95 01/03/21 23:48 84 96 01/03/21 23:43 91 H 96 01/03/21 23:38 86 96 01/03/21 23:34 99 H 91 01/03/21 23:33 89 95 01/03/21 23:29 87 121/61 01/03/21 23:28 87 96 01/03/21 23:23 90 97 01/03/21 23:18 90 97 01/03/21 23:13 91 H 97 01/03/21 23:08 87 97 01/03/21 23:03 97 H 97 01/03/21 22:59 90 131/62 01/03/21 22:58 89 99 01/03/21 22:53 92 H 97 01/03/21 22:48 91 H 98 01/03/21 22:43 86 96 01/03/21 22:38 95 H 97 01/03/21 22:33 98 H 97 01/03/21 22:29 94 H 131/65 01/03/21 22:28 99 H 98 01/03/21 22:23 94 H 98 01/03/21 22:18 90 99 01/03/21 22:13 95 H 97 01/03/21 22:08 94 H 96 01/03/21 22:03 95 H 97 01/03/21 22:00 106 H 88 01/03/21 21:59 93 H 135/61 21 21:58 97 H 98 01/03/21 21:53 91 H 98 01/03/21 21:48 100 H 97 01/03/21 21:43 96 H 97 01/03/21 21:38 92 H 98 01/03/21 21:34 18 03 21:33 108 H 97 21 21:32 104 H 140/78 01/03/21 21:29 95 H 140/78 01/03/21 21:28 96 H 97 03/25/21 21:23 94 H 97 03/21 21:18 94 H 98 03/21 21:13 94 H 95 03/21 21:08 95 H 99 03/21 21:03 100 H 98 03/21 20:59 92 H 137/75 0325/21 20:58 100 H 98 0325/21 20:53 102 H 96 0325/21 20:48 100 H 96 25/21 20:43 98 H 96 03/21 20:38 95 H 95 25/21 20:33 94 H 96 0325/21 20:29 100 H 133/75 25/21 20:28 94 H 96 01/03/21 20:23 95 H 97 01/03/21 20:18 91 H 98 25/21 20:13 98 H 97 01/03/21 20:08 95 H 98 0325/21 20:03 95 H 98 03/21 19:59 93 H 135/76 01/03/21 19:58 92 H 97 01/03/21 19:53 91 H 99 01/03/21 19:48 99 H 98 0325/21 19:46 104 H 92 01/03/21 19:43 103 H 96 01/03/21 19:38 95 H 98 01/03/21 19:33 100 H 98 01/03/21 19:29 96 H 139/78 01/03/21 19:28 94 H 99 01/03/21 19:23 94 H 99 01/03/21 19:18 105 H 98 25/21 19:13 99 H 98 03/21 19:08 96 H 98 01/03/21 19:03 97 H 98 0325/21 18:59 100 H 131/74 0325/21 18:57 100 H 98 0325/21 18:56 101 H 89 0325/21 18:52 102 H 98 0325/21 18:48 93 H 99 01/03/21 18:42 105 H 98 0325/21 18:37 102 H 98 03/25/21 18:32 109 H 98 0325/21 18:29 103 H 135/73 0325/21 18:27 102 H 98 0325/21 18:22 107 H 97 01/03/21 18:17 105 H 97 01/03/21 18:16 101 H 87 01/03/21 18:13 103 H 98 01/03/21 18:07 104 H 97 01/03/21 18:02 101 H 97 01/03/21 17:59 100 H 138/69 01/03/21 17:58 100 H 98 01/03/21 17:53 99 H 99 01/03/21 17:48 102 H 98 01/03/21 17:42 103 H 98 01/03/21 17:37 100 H 97 01/03/21 17:32 101 H 96 01/03/21 17:29 100 H 144/78 01/03/21 17:27 92 H 98 01/03/21 17:22 101 H 97 01/03/21 17:18 94 H 99 01/03/21 17:13 96 H 97 01/03/21 17:11 98.8 F 20 97 01/03/21 17:07 98 H 97 01/03/21 17:02 85 97 01/03/21 17:00 20 01/03/21 16:59 86 132/71 01/03/21 16:58 94 H 97 01/03/21 16:52 90 97 01/03/21 16:48 103 H 98 01/03/21 16:43 92 H 95 01/03/21 16:38 90 96 Intake and Output 01/04/21 01/04/21 01/04/21 06:59 14:59 22:59 Intake Total 1000 1165.000 Output Total 1500 Balance 1000 -335.000 Intake: IV 1000 1165.000 Lactated Ringers 1,000 ml 1000 @ 125 mls/hr IV DIRECT TARA Rx#:[id number] MAGNESIUM SULFATE 40GM/ 1165.000 1000ML 40 gm In 1,000 ml @ 2 GM/HR 50 mls/hr IV DIRECT TARA Rx#:[id number] Output: Urine 1500 Indwelling Catheter 1500 Other: Total, Output Amount 1500 - Exam Breasts: Present: deferred Abdomen: Present: soft Uterus: Present: fundal height at umbilicus Extremities: Present: edema (trace) Incision: Present: dressed - Labs Labs: Abnormal lab results 01/03/21 01/04/21 01/04/21 Range/Units 17:37 00:25 06:58 Magnesium 4.70 H 5.30 H 6.00 H (1.7-2.3) mg/dL
[2021-01-04] MEDS: DOCUSATE SODIUM 100 MG CAP PO SCH (21:39)
[2021-01-04] MEDS: MAGNESIUM HYDROXIDE (MOM) ORAL LIQD UDC PO SCH (21:39)
[2021-01-04] MEDS: oxyCODONE /ACETAMINOPHEN 5-325MG TAB PO PRN (22:49)
[2021-01-05] MEDS: KETOROLAC 30 MG/1 ML INJ IV SCH ×3 (04:06→15:00)
--- NOTE | 2021-01-05 08:11 | Progress Note ---
Assessment and Plan POD 2 s/p LTCS for failed induction of labor and NRFHTs. Pt doing well, but has not had much ambulation. Pt advised to increase ambulation. Subjective - Subjective Date of service: 01/05/21 Principal diagnosis: s/p primary , Preeclampsia with severe features Patient reports: appetite normal, voiding normally, pain well controlled, ambulating normally (needs to increase ambulation), other [place]: doing well Objective - Vital Signs Latest vital signs: Vital Signs Temp Pulse Resp BP BP Pulse Ox 01/05/21 04:06 18 01/05/21 02:11 98.6 F 66 16 104/78 01/04/21 22:49 18 01/04/21 21:40 20 01/04/21 21:39 72 135/74 01/04/21 16:30 98.6 F 67 18 121/70 97 01/04/21 15:42 98.1 F 76 16 122/68 100 01/04/21 11:53 90 97 01/04/21 11:48 89 96 01/04/21 11:43 85 97 01/04/21 11:38 89 97 01/04/21 11:33 87 97 01/04/21 11:29 90 118/61 01/04/21 11:28 89 97 01/04/21 11:23 94 H 97 01/04/21 11:18 92 H 97 01/04/21 11:13 87 97 01/04/21 11:08 91 H 97 01/04/21 11:03 90 98 01/04/21 10:59 90 127/59 01/04/21 10:58 92 H 97 01/04/21 10:53 94 H 96 01/04/21 10:48 95 H 96 01/04/21 10:43 86 97 01/04/21 10:38 93 H 97 01/04/21 10:33 89 98 01/04/21 10:29 85 139/78 01/04/21 10:28 86 99 01/04/21 10:24 92 H 140/80 01/04/21 10:23 94 H 97 01/04/21 10:18 85 97 01/04/21 10:13 88 96 01/04/21 10:08 91 H 96 01/04/21 10:03 86 97 01/04/21 09:59 86 140/80 01/04/21 09:58 87 97 01/04/21 09:53 83 95 01/04/21 09:48 84 90 01/04/21 09:43 88 96 01/04/21 09:38 86 96 01/04/21 09:33 89 97 01/04/21 09:29 96 H 135/79 01/04/21 09:28 85 98 01/04/21 09:23 84 96 01/04/21 09:18 86 97 01/04/21 09:13 84 97 01/04/21 09:08 84 96 01/04/21 09:03 81 97 01/04/21 08:59 82 138/79 01/04/21 08:58 82 97 01/04/21 08:53 83 97 01/04/21 08:48 86 98 01/04/21 08:43 83 98 01/04/21 08:37 90 97 01/04/21 08:33 90 95 01/04/21 08:28 83 134/78 95 01/04/21 08:25 94 H 91 01/04/21 08:23 94 H 87 01/04/21 08:18 90 87 01/04/21 08:13 94 H 92 01/04/21 08:08 77 91 01/04/21 08:07 87 87 01/04/21 08:03 86 96 Intake and Output 01/04/21 01/05/21 01/05/21 22:59 06:59 14:59 Intake Total 300 300 Output Total 200 600 Balance 100 -300 Intake: Intake, Free Water 300 300 Output: Urine 200 600 Void 200 600 Other: Total, Output Amount 200 600 # Voids Void 1 1 - Exam Cardiovascular: Present: Regular rate, Normal S1, Normal S2 Lungs: Present: Clear to auscultation, Normal air movement Abdomen: Present: normal appearance, soft, normal bowel sounds Extremities: Present: normal Incision: Present: normal, dry, intact, dressed - Labs Labs: Abnormal lab results 01/04/21 Range/Units 06:58 Magnesium 6.00 H (1.7-2.3) mg/dL
[2021-01-05] MEDS: DOCUSATE SODIUM 100 MG CAP PO SCH ×2 (10:13→21:37)
[2021-01-05] MEDS: oxyCODONE /ACETAMINOPHEN 5-325MG TAB PO PRN ×3 (10:14→23:43)
[2021-01-05] MEDS: PRENATAL VIT27-FE FUMARATE-FOLIC ACID VIT TAB PO SCH (10:14)
[2021-01-05] MEDS: IBUPROFEN 800 MG TAB PO PRN (15:45)
[2021-01-05] MEDS: MAGNESIUM HYDROXIDE (MOM) ORAL LIQD UDC PO SCH (21:37)
[2021-01-06] MEDS: KETOROLAC 30 MG/1 ML INJ IV SCH ×2 (03:09→05:50)
[2021-01-06] MEDS: IBUPROFEN 800 MG TAB PO PRN (03:28)
[2021-01-06] MEDS: oxyCODONE /ACETAMINOPHEN 5-325MG TAB PO PRN (08:55)
--- NOTE | 2021-01-06 11:30 | Discharge Summary ---
Providers - Providers Date of Admission: 12/31/20 16:19 Date of discharge: 01/06/21 Attending physician: PELON MELENDEZ 01/03/21 03:40 Consult to Dispatch Officer [CONS] Routine Reason For Exam: Primary care physician: PELON MELENDEZ Hospitalization Reason for admission: induction of labor Delivery: Procedure: primary low transverse Incision: normal, dry, intact, dressed Other procedures: none complications: none Discharge diagnosis: IUP at term delivered Hospital course: Pt did well post delivery. Condition at discharge: Good Disposition: DC-01 TO HOME OR SELFCARE Plan - Discharge Medications Prescriptions: Docusate Sodium [Colace] 100 mg PO BID #60 capsule Ibuprofen [Motrin] 800 mg PO Q8HR PRN #40 tablet PRN Reason: Pain, Mild (1-3) oxyCODONE /ACETAMINOPHEN [Percocet 5/325] 2 tab PO Q6HR PRN #40 tablet PRN Reason: Pain - Provider Discharge Summary Activity: routine, no sex for 6 weeks, no heavy lifting 4 weeks, no strenuous exercise Diet: routine Instructions: routine Additional instructions: [] Smoking cessation referral if applicable(refer to patient education folder for contact #) [] Refer to [facility]'s [facility] Booklet Call your doctor immediately for: * Fever > 100.5 * Heavy vaginal bleeding ( >1 pad per hour) * Severe persistent headache * Shortness of breath * Reddened, hot, painful area to leg or breast * Drainage or odor from incision. * Keep incision clean and dry at all times and follow doctor's instructions regarding bathing/showering - Follow up plan Follow up: PELON MELENDEZ MD [Primary Care Provider] - 7 Days Forms: [facility] Discharge Summary
[2021-01-06] MEDS: PRENATAL VIT27-FE FUMARATE-FOLIC ACID VIT TAB PO SCH (11:54)
[2021-01-06] MEDS: DOCUSATE SODIUM 100 MG CAP PO SCH (11:54)
[2021-01-06 12:41] VITALS: BP 128/74
== END 2021-01-06 14:23 | disposition home or self-care (01) | DRG 788 ==
LOC: LD 16:19 → OB 01-03 08:44 → LD 01-03 11:04 → OB 01-04 16:41
PROVIDERS: ADMIT Obstetrics & Gynecology; ATTEND Obstetrics & Gynecology
PROC: 10D00Z1 Extraction of Products of Conception, Low, Open Approach (ICD-10-PCS; principal; 2021-01-03)
PROC: 3E033VJ Introduction of Other Hormone into Peripheral Vein, Percutaneous Approach (ICD-10-PCS; 2021-01-03)
DX: O13.4 Gestational [pregnancy-induced] hypertension without significant proteinuria, complicating childbirth (principal); O61.9 Failed induction of labor, unspecified; Z3A.40 40 weeks gestation of pregnancy; Z37.0 Single live birth; O99.344 Other mental disorders complicating childbirth; F31.9 Bipolar disorder, unspecified; O99.824 Streptococcus B carrier state complicating childbirth; O14.14 Severe pre-eclampsia complicating childbirth; Z20.822 Contact with and (suspected) exposure to COVID-19
CPT/HCPCS: 36415; 59200; 81001; 82565; 82570; 83615; 83735; 84156; 84450; 84460; 84550; 85014; 85018; 85027; 86592; 86850; 86900; 86901; G0378; J0595; J0690; J1100; J1170; J1200; J1885; J2300; J2405; J2590; J2765; J3475; J7120; U0003